=== PATIENT | male | born 1950 | race Caucasian/White ===

== ENCOUNTER → 2016-05-11 | Outpatient (CLI) | payer MEDICARE, OTHER ==
[~2016-05-11] VITALS: Ht 172.7 cm; Wt 104.8 kg
== END ==
LOC: OPSV 06:59
DX: M48.16 Ankylosing hyperostosis [Forestier], lumbar region (principal)
CPT/HCPCS: 96413; 96415; J1745

== ENCOUNTER → 2016-08-03 | Outpatient (CLI) | payer MEDICARE, OTHER ==
[~2016-08-03] VITALS: Ht 172.7 cm; Wt 104.8 kg
== END ==
LOC: OPSV 06:32
DX: M48.16 Ankylosing hyperostosis [Forestier], lumbar region (principal)
CPT/HCPCS: 96413; 96415; J1745